=== PATIENT | male | born 1965 | race Caucasian/White ===

== ENCOUNTER 2019-09-22 13:05 | Inpatient (IN) | payer MEDICARE ==
[2019-09-22 13:33] LABS: ABSOLUTE EOSINOPHILS # (AUTO) 0.1 10^3/uL (0.0-0.6); ABSOLUTE LYMPHOCYTES (AUTO) 2.2 10^3/uL (0.5-4.7); ABSOLUTE MONOCYTES (AUTO) 0.7 10^3/uL (0.1-1.4); ABSOLUTE NEUT (AUTO) 4.7 10^3/uL (1.7-8.2); BASOPHILS % (AUTO) 0.6 % (0-2); EOSINOPHILS % (AUTO) 1.3 % (0-6); HEMATOCRIT 47.8 % (37.9-51.0); HEMOGLOBIN 16.6 g/dL (13.5-17.0); LYMPHOCYTES % (AUTO) 28.7 % (13-45); MEAN CORPUSCULAR HGB CONC 34.6 g/dL (32.0-36.0); MEAN CORPUSCULAR VOLUME 89 fl (80-97); MONOCYTES % (AUTO) 8.8 % (3-13); PLATELET COUNT 163 10^3/uL (150-450); RED BLOOD COUNT 5.35 10^6/uL (4.35-5.55); RED CELL DISTRIBUTION WIDTH 12.9 % (11.5-14.0); SEGMENTED NEUTROPHILS % (AUTO) 60.6 % (42-78); TOTAL CELLS COUNTED % (AUTO) 100 %; WHITE BLOOD COUNT 7.8 10^3/uL (4.0-10.5)
[2019-09-22] MEDS ORDERED: ONDANSETRON HCL INJ/PF 4 MG/2 ML SDV IV ONE (13:38)
[2019-09-22] MEDS ORDERED: DILTIAZEM HCL/D5W 125 MG/125 ML RTUINJ IV PRN ×2 (13:38→17:47)
--- NOTE | 2019-09-22 13:45 | ER Document Report ---
ED General - General Chief Complaint: Nausea Stated Complaint: NAUSEA/DIZZINESS Time Seen by Provider: 09/22/19 13:26 - HPI Notes: 54-year-old male transported here via EMS with a chief complaint of high blood sugar and rapid heart rate. This gentleman has a history of insulin-dependent diabetes mellitus for the past 2 years and also has a history of chronic atrial flutter/fibrillation. He is moved here from the [facility] within the last 3 months and has not seen a doctor since then. He says he is not feeling well today in general but says he is compliant with his medications. He denies nausea vomiting but says that he has not been eating or drinking well. Patient is chronically on metoprolol, diltiazem and Eliquis. He reports no allergies. He smokes 1/2 pack of cigarettes per day. He smokes marijuana. He denies abuse of alcohol. Past Medical History - General Information source: Patient, Emergency Med Personnel - Social History Smoking Status: Current Every Day Smoker Cigarette use (# per day): Yes - 1/2 pack/day Chew tobacco use (# tins/day): No Frequency of alcohol use: None Drug Abuse: Marijuana Family History: Reviewed & Not Pertinent Patient has suicidal ideation: No Patient has homicidal ideation: No - Past Medical History Cardiac Medical History: Reports: Hx Atrial Fibrillation Pulmonary Medical History: Reports: None Neurological Medical History: Reports: None Endocrine Medical History: Reports: Hx Diabetes Mellitus Type 1 Musculoskeletal Medical History: Reports Other - Chronic low back pain with previous back surgery Past Surgical History: Reports: Other - Lumbar laminectomy Review of Systems - Review of Systems Notes: Constitutional: Negative for fever. HENT: Negative for sore throat. Eyes: Negative for visual changes. Cardiovascular: Vague tightness in chest this morning mid chest without radiation. Respiratory: Negative for shortness of breath. Gastrointestinal: Nausea present. Negative for abdominal pain, vomiting or diarrhea. Genitourinary: Urinary frequency. Negative for dysuria. Musculoskeletal: Negative for back pain. Skin: Negative for rash. Neurological: Negative for headaches, focal weakness or numbness. 10 point ROS negative except as marked above and in HPI. Physical Exam - Vital signs Vitals: Resp Pulse Ox 19 98 09/22/19 13:23 09/22/19 13:23 - Notes Notes: GENERAL: Somewhat chronically ill male of approximately dehydrated. SKIN: Good turgor no rashes. HEAD: Normocephalic atraumatic. EYES: PERRLA. EOMI. Conjunctivae and sclerae clear. EARS: CANALS AND TMS CLEAR. NOSE: CLEAR. MOUTH: Tacky oral mucosa. Good dentition. No stridor or edema. No drooling. Throat: Clear. NECK: Supple. No masses or thyromegaly. No adenopathy. Carotids 2+ without bruits. No JVD. BACK: Symmetrical without tenderness. CHEST: Respirations unlabored. Breath sounds clear and symmetrical. HEART: Tachycardic irregular rhythm. No murmur gallop or rub. ABDOMEN: Soft nontender without masses, organomegaly or rebound. Bowel sounds normally active. No bruits. GENITALIA: Deferred. EXTREMITIES: No edema. No calf tenderness. Cap refill less than 1.5 seconds. Dorsalis pedis and posterior tibial pulses 3+ and symmetrical. NEUROLOGICAL: GCS 15. Alert and oriented x3. Fluent speech. Cranial nerves II through XII intact. Sensorimotor and cerebellar normal. Normal tone. PSYCHIATRIC: Flat affect and mildly hostile. Course - Re-evaluation Re-evalutation: 09/22/19 17:23 We initially treated this man with aggressive IV normal saline hydration. His rate slowed with this his blood pressure remained stable. His initial venous pH was 7.3 with a bicarb of 19 I thought he was very early diabetic ketoacidosis. His urine ketones were strongly positive. He has no evidence of an active infection. His EKG showed no ST changes to suggest [place]. His troponin was negative. A repeat venous pH x-ray showed the value falling to a level of 7.23. We have initiated an IV insulin infusion. He is admitted by the hospitalist service. - Vital Signs Vital signs: Temp Pulse Resp BP Pulse Ox 18 113/82 99 09/22/19 16:30 09/22/19 16:30 09/22/19 13:30 - Laboratory Result Diagrams: 09/22/19 13:13 09/22/19 13:13 Laboratory results interpreted by me: 09/22/19 09/22/19 09/22/19 13:13 13:23 14:25 VBG pH VBG HCO3 18.2 L Sodium 134.3 L Carbon Dioxide 17 L Glucose 353 H POC Glucose 324 H Creatine Kinase < 20 L Total Protein 6.2 L Urine Glucose (UA) Urine Ketones 09/22/19 09/22/19 09/22/19 16:13 16:20 16:35 VBG pH 7.23 L VBG HCO3 17.0 L Sodium Carbon Dioxide Glucose POC Glucose 272 H Creatine Kinase Total Protein Urine Glucose (UA) >=500 H Urine Ketones 80 H Critical Care Note - Critical Care Note Total time excluding time spent on procedures (mins): 65 Comments: IV insulin infusion Discharge - Discharge Clinical Impression: Chronic atrial flutter Diabetic ketoacidosis Qualifiers: Diabetes mellitus type: type 1 Diabetes mellitus complication detail: without coma Qualified Code(s): E10.10 - Type 1 diabetes mellitus with ketoacidosis without coma Condition: Fair Disposition: ADMITTED INPATIENT Admitting Provider: Karen (Hospitalist) Unit Admitted: [facility]
[2019-09-22 13:58] LABS: ALBUMIN 3.8 g/dL (3.5-5.0); ALKALINE PHOSPHATASE 87 U/L (38-126); ASPARTATE AMINO TRANSFERASE 20 U/L (17-59); BILIRUBIN,DIRECT 0.3 mg/dL (0.0-0.4); BILIRUBIN,TOTAL 0.6 mg/dL (0.2-1.3); BLOOD UREA NITROGEN 13 mg/dL (7-20); CALCIUM 9.2 mg/dL (8.4-10.2); CHLORIDE 98 mmol/L (98-107); GLUCOSE 353 mg/dL (75-110); POTASSIUM 4.9 mmol/L (3.6-5.0); TOTAL PROTEIN 6.2 g/dL (6.3-8.2)
[2019-09-22 14:01] LABS: CREATINE KINASE < 20 U/L (55-170)
[2019-09-22 14:03] LABS: CARBON DIOXIDE 17 mmol/L (22-30)
[2019-09-22 14:04] LABS: ANION GAP 19 (5-19); PROTHROMBIN TIME 14.2 SEC (11.4-15.4)
--- NOTE | 2019-09-22 14:08 | RADIOLOGY REPORT (SQ) ---
EXAM DESCRIPTION: CHEST SINGLE VIEW COMPLETED DATE/TIME: 09/22/2019 1:55 pm REASON FOR STUDY: A. flutter COMPARISON: None. EXAM PARAMETERS: NUMBER OF VIEWS: One view. TECHNIQUE: Single frontal radiographic view of the chest acquired. RADIATION DOSE: NA LIMITATIONS: None. FINDINGS: LUNGS AND PLEURA: No opacities, masses or pneumothorax. No pleural effusion. MEDIASTINUM AND HILAR STRUCTURES: No masses. Contour normal. HEART AND VASCULAR STRUCTURES: Heart normal in size. Normal vasculature. BONES: No acute findings. HARDWARE: None in the chest. OTHER: No other significant finding. IMPRESSION: NO ACUTE RADIOGRAPHIC FINDING IN THE CHEST. TECHNICAL DOCUMENTATION: JOB ID: [id number] [employer]- All Rights Reserved Reading location - IP/workstation name: [email or web address]
[2019-09-22 14:09] LABS: CREATINE KINASE MB 0.25 ng/mL (<4.55)
[2019-09-22 14:10] LABS: TROPONIN I < 0.012 ng/mL
[2019-09-22] MEDS: NORMAL SALINE 1000 ML 1,000 ML IV PRN ×2 (14:34→15:47)
[2019-09-22 14:36] LABS: VENOUS BLOOD BASE EXCESS -7.4 mmol/L; VENOUS BLOOD HCO3 18.2 mmol/L (20-32); VENOUS BLOOD PCO2 37.5 mmHg (35-63); VENOUS BLOOD PH 7.3 (7.30-7.42)
[2019-09-22] MEDS ORDERED: NORMAL SALINE 1000 ML 1,000 ML IV ONE (15:09)
[2019-09-22 16:48] LABS: VENOUS BLOOD BASE EXCESS -10.1 mmol/L; VENOUS BLOOD PCO2 41.8 mmHg (35-63); VENOUS BLOOD PH 7.23 (7.30-7.42)
[2019-09-22 16:51] LABS: APPEARANCE,URINE CLEAR; BILIRUBIN,URINE NEGATIVE (NEGATIVE); COLOR,URINE YELLOW; GLUCOSE, URINE >=500 mg/dL (NEGATIVE); KETONES,URINE 80 mg/dL (NEGATIVE); LEUKOCYTE ESTERASE,URINE NEGATIVE (NEGATIVE); NITRITE,URINE NEGATIVE (NEGATIVE); PROTEIN,URINE NEGATIVE (NEGATIVE); UROBILINOGEN,URINE NEGATIVE mg/dL (<2.0)
[2019-09-22] MEDS ORDERED: DEXTROSE 5%-1/2 NORMAL SALINE 1,000 ML with POTASSIUM CHLORIDE 20 MEQ IV ONE ×2 (17:05)
[2019-09-22] MEDS ORDERED: NORMAL SALINE 100 ML with INSULIN REGULAR, HUMAN 100 UNIT IV PRN ×2 (17:08)
[2019-09-22 17:12] LABS: URINE AMPHETAMINES SCREEN NEGATIVE; URINE BARBITURATES SCREEN NEGATIVE; URINE BENZODIAZEPINES SCREEN NEGATIVE; URINE COCAINE SCREEN NEGATIVE; URINE MARIJUANA (THC) SCREEN UNCONFIRMED POSITIVE; URINE METHADONE SCREEN NEGATIVE; URINE PHENCYCLIDINE SCREEN NEGATIVE
[2019-09-22] MEDS ORDERED: POTASSI CL 20 MEQ/D5-1/2NS 1L 1000 ML IV ONE (17:30)
[2019-09-22] MEDS ORDERED: ONDANSETRON HCL INJ/PF 4 MG/2 ML SDV IV PRN (17:39)
[2019-09-22] MEDS ORDERED: DEXTROSE 40% GEL 15 GM TUBE PO PRN ×2 (17:46)
[2019-09-22] MEDS ORDERED: GLUCAGON,HUMAN RECOMB 1 MG INJ IM PRN (17:46)
[2019-09-22] MEDS ORDERED: DEXTROSE 50%-WATER 25 GM/50 ML DISP.SYRIN IV PRN ×2 (17:46)
[2019-09-22] MEDS ORDERED: INSULIN REG, HUMAN 100 UNIT/ML 3 ML VIAL (PYX) ONE (18:09)
--- NOTE | 2019-09-22 18:15 | PDOC H&P ---
History of Present Illness Admission Date/PCP: 09/22/19 17:39 Patient complains of: Lightheadedness, elevated blood sugar reading History of Present Illness: MATT OAKLEY is a 54 year old male with a history of diabetes mellitus, atrial fibrillation/a flutter on chronic anticoagulation, who presents to the hospital with complaints of lightheadedness especially on standing. Patient also noted that his blood sugar was elevated at home. Patient is currently very grumpy and does not want to divulge much information. Patient is getting angry at me because he is requesting for food and I am telling him that he needs to be n.p.o. until we resolve his DKA. Patient however admits to noncompliance with his insulin. States he is meant to take 30 units of Lantus twice a day but only takes it whenever he gets sick. Last time he took this was 1 week ago. Currently denies chest pain shortness of breath, polyuria, abdominal pain, nausea or vomiting. Past Medical History Cardiac Medical History: Reports: Atrial Fibrillation Pulmonary Medical History: Reports: None Neurological Medical History: Reports: None Endocrine Medical History: Reports: Diabetes Mellitus Type 2 Musculoskeltal Medical History: Reports: Other - Chronic low back pain with previous back surgery Past Surgical History Past Surgical History: Reports: Other - Lumbar laminectomy Social History Smoking Status: Current Every Day Smoker Cigarettes Packs Per Day: 0.5 Electronic Cigarette use?: No Hx Recreational Drug Use: No Hx Prescription Drug Abuse: No - Advance Directive Resuscitation Status: Intubate only. No CPR. Implications confirmed with patient. Family History Family History: Other - Patient is agitated and did not want to divulge family history Parental Family History Reviewed: Yes Children Family History Reviewed: NA Sibling(s) Family History Reviewed.: NA Review of Systems Constitutional: ABSENT: fever(s) Eyes: ABSENT: visual disturbances Respiratory: ABSENT: cough, dyspnea Gastrointestinal: ABSENT: abdominal pain, nausea, vomiting Genitourinary: ABSENT: dysuria Musculoskeletal: ABSENT: back pain Integumentary: ABSENT: diaphoresis Neurological: PRESENT: dizziness Psychiatric: ABSENT: depression Physical Exam Vital Signs: Temp Pulse Resp BP Pulse Ox 18 113/82 99 09/22/19 16:30 09/22/19 16:30 09/22/19 13:30 Intake & Output 09/21/19 09/22/19 09/23/19 06:59 06:59 06:59 Intake Total 3000 Balance 3000 Weight 81.647 kg General appearance: PRESENT: no acute distress, cooperative Head exam: PRESENT: normocephalic Eye exam: ABSENT: scleral icterus Mouth exam: PRESENT: neck supple Neck exam: ABSENT: JVD Respiratory exam: PRESENT: clear to auscultation rosetta, symmetrical, unlabored. ABSENT: tachypnea, wheezes Cardiovascular exam: PRESENT: irregular rhythm, +S1, +S2, tachycardia GI/Abdominal exam: PRESENT: normal bowel sounds, soft. ABSENT: rebound, rigid, tenderness Extremities exam: ABSENT: pedal edema Musculoskeletal exam: PRESENT: normal inspection Neurological exam: PRESENT: alert, awake, oriented to situation Psychiatric exam: PRESENT: agitated. ABSENT: anxious Focused psych exam: ABSENT: pressured speech Results Laboratory Results: 09/22/19 13:13 09/22/19 13:13 09/22/19 09/22/19 09/22/19 13:13 13:13 14:25 WBC 7.8 RBC 5.35 Hgb 16.6 Hct 47.8 MCV 89 MCH 31.0 MCHC 34.6 RDW 12.9 Plt Count 163 Seg Neutrophils % 60.6 VBG pH 7.30 VBG pCO2 37.5 VBG HCO3 18.2 L VBG Base Excess -7.4 Sodium 134.3 L Potassium 4.9 Chloride 98 Carbon Dioxide 17 L Anion Gap 19 BUN 13 Creatinine 0.58 Est GFR ( Amer) > 60 Glucose 353 H Calcium 9.2 Total Bilirubin 0.6 AST 20 Alkaline Phosphatase 87 Total Protein 6.2 L Albumin 3.8 Urine Color Urine Appearance Urine pH Ur Specific [place] Urine Protein Urine Glucose (UA) Urine Ketones Urine Blood Urine Nitrite Ur Leukocyte Esterase Urine WBC (Auto) Urine RBC (Auto) 09/22/19 09/22/19 16:20 16:35 WBC RBC Hgb Hct MCV MCH MCHC RDW Plt Count Seg Neutrophils % VBG pH 7.23 L VBG pCO2 41.8 VBG HCO3 17.0 L VBG Base Excess -10.1 Sodium Potassium Chloride Carbon Dioxide Anion Gap BUN Creatinine Est GFR ( Amer) Glucose Calcium Total Bilirubin AST Alkaline Phosphatase Total Protein Albumin Urine Color YELLOW Urine Appearance CLEAR Urine pH 5.0 Ur Specific [place] 1.030 Urine Protein NEGATIVE Urine Glucose (UA) >=500 H Urine Ketones 80 H Urine Blood NEGATIVE Urine Nitrite NEGATIVE Ur Leukocyte Esterase NEGATIVE Urine WBC (Auto) 0 Urine RBC (Auto) 0 09/22/19 09/22/19 13:13 13:13 Creatine Kinase < 20 L CK-MB (CK-2) 0.25 Troponin I < 0.012 Impressions: Chest X-Ray 09/22/19 13:37 IMPRESSION: NO ACUTE RADIOGRAPHIC FINDING IN THE CHEST. Assessment and Plan - Diagnosis (1) Diabetic ketoacidosis Qualifiers: Diabetes mellitus type: other specified (including SONAM) Diabetes mellitus complication detail: without coma Qualified Code(s): E13.10 - Other specified diabetes mellitus with ketoacidosis without coma Is this a current diagnosis for this admission?: Yes Plan: Patient notably is meant to be taking glipizide and metformin and also states that he was meant to be taking Lantus 30 units twice a day which he has not taken in a week. Clearly he is DKA secondary to noncompliance with insulin. pH of 7.23 with anion gap of 18 and ketonuria of 80. Start on insulin drip and give 8 units regular insulin IV bolus now Monitor BMP every 4-6 hours with repeat venous blood gas and every hour Accu- Cheks DKA protocol KCl supplementation and IV hydration (2) Atrial flutter with rapid ventricular response Is this a current diagnosis for this admission?: Yes Plan: Chronic atrial flutter now with rapid ventricular response secondary to dehydrated state and DKA Check TSH Home regimen is meant to be diltiazem 120 mg every 12 hours and Lopressor 25 mg every 12 hours Maintain on diltiazem drip for now. Monitor on telemetry. Give a dose of diltiazem 120 mg p.o. now and IV hydration. Continue Xarelto and Lopressor (3) GERD (gastroesophageal reflux disease) Qualifiers: Esophagitis presence: without esophagitis Qualified Code(s): K21.9 - Gastro-esophageal reflux disease without esophagitis Is this a current diagnosis for this admission?: Yes Plan: Protonix 40 mg daily (4) Lightheadedness Is this a current diagnosis for this admission?: Yes Plan: Likely secondary to dehydrated state. Continue IV fluids. Check orthostatics tomorrow - Time Time Spent with patient: 35 or more minutes - Inpatient Certification Medical Necessity: Need Close Monitoring Due to Risk of Patient Decompensation, Need For Continuous Telemetry Monitoring, Risk of Complication if Not Cared For in Hospital
[2019-09-22] MEDS ORDERED: POTASSIUM CHLORIDE IV PRN ×2 (18:24)
[2019-09-22] MEDS ORDERED: [UNRECOGNIZED DRUG - OTHER] IV PRN ×2 (18:24)
[2019-09-22] MEDS ORDERED: SODIUM CHLORIDE IV PRN ×2 (18:24)
[2019-09-22] MEDS ORDERED: [UNRECOGNIZED DRUG - OTHER] IV PRN ×2 (18:27)
[2019-09-22] MEDS ORDERED: NS IV PRN ×2 (18:27)
[2019-09-22] MEDS ORDERED: POTASSI CL 20 MEQ/NS 1L 1000 ML IV PRN (18:34)
[2019-09-22] MEDS: NORMAL SALINE 100 ML with INSULIN REGULAR, HUMAN 100 UNIT IV PRN ×4 (21:00→23:45)
[2019-09-22] MEDS: METOPROLOL TARTRATE 25 MG TABLET PO SCH (21:45)
[2019-09-22] MEDS: SIMVASTATIN 10 MG TABLET PO SCH (21:45)
[2019-09-22] MEDS: DILTIAZEM HCL 120 MG CAP.SR.24H PO SCH (21:47)
[2019-09-22 22:20] LABS: VENOUS BLOOD BASE EXCESS -10.7 mmol/L; VENOUS BLOOD HCO3 13.8 mmol/L (20-32); VENOUS BLOOD PCO2 28.1 mmHg (35-63); VENOUS BLOOD PH 7.31 (7.30-7.42)
[2019-09-22 22:26] LABS: ANION GAP 19 (5-19); BLOOD UREA NITROGEN 8 mg/dL (7-20); CALCIUM 8.5 mg/dL (8.4-10.2); CHLORIDE 105 mmol/L (98-107); GLUCOSE 204 mg/dL (75-110); POTASSIUM 4.6 mmol/L (3.6-5.0)
[2019-09-22] MEDS: RIVAROXABAN 10 MG TABLET PO SCH (22:29)
[2019-09-22 22:40] LABS: CARBON DIOXIDE 10 mmol/L (22-30)
[2019-09-22] MEDS: ACETAMINOPHEN 325 MG TABLET PO PRN (23:00)
[2019-09-23] MEDS: POTASSI CL 20 MEQ/D5-1/2NS 1L 1,000 ML IV PRN ×3 (00:58→10:40)
[2019-09-23 02:54] LABS: ANION GAP 10 (5-19); BLOOD UREA NITROGEN 11 mg/dL (7-20); CALCIUM 8.5 mg/dL (8.4-10.2); CARBON DIOXIDE 18 mmol/L (22-30); CHLORIDE 107 mmol/L (98-107); GLUCOSE 329 mg/dL (75-110); POTASSIUM 4.1 mmol/L (3.6-5.0)
[2019-09-23] MEDS: POTASSIUM CHLORIDE 20 MEQ/50 ML RTU IV SCH ×3 (04:00→08:21)
[2019-09-23] MEDS: PANTOPRAZOLE SODIUM 40 MG TABLET.DR PO SCH (05:53)
[2019-09-23] MEDS: DILTIAZEM HCL 120 MG CAP.SR.24H PO SCH ×2 (05:53→17:39)
[2019-09-23 06:16] LABS: VENOUS BLOOD BASE EXCESS -5.7 mmol/L; VENOUS BLOOD HCO3 18.4 mmol/L (20-32); VENOUS BLOOD PCO2 32.4 mmHg (35-63); VENOUS BLOOD PH 7.37 (7.30-7.42)
[2019-09-23 06:25] LABS: ABSOLUTE EOSINOPHILS # (AUTO) 0.3 10^3/uL (0.0-0.6); ABSOLUTE LYMPHOCYTES (AUTO) 3.6 10^3/uL (0.5-4.7); ABSOLUTE MONOCYTES (AUTO) 0.9 10^3/uL (0.1-1.4); ABSOLUTE NEUT (AUTO) 4.6 10^3/uL (1.7-8.2); BASOPHILS % (AUTO) 0.5 % (0-2); EOSINOPHILS % (AUTO) 2.8 % (0-6); HEMATOCRIT 43.5 % (37.9-51.0); HEMOGLOBIN 15.1 g/dL (13.5-17.0); LYMPHOCYTES % (AUTO) 38.5 % (13-45); MEAN CORPUSCULAR HEMOGLOBIN 30.7 pg (27.0-33.4); MEAN CORPUSCULAR HGB CONC 34.8 g/dL (32.0-36.0); MEAN CORPUSCULAR VOLUME 88 fl (80-97); MONOCYTES % (AUTO) 9.2 % (3-13); PLATELET COUNT 178 10^3/uL (150-450); RED BLOOD COUNT 4.92 10^6/uL (4.35-5.55); RED CELL DISTRIBUTION WIDTH 12.5 % (11.5-14.0); TOTAL CELLS COUNTED % (AUTO) 100 %; WHITE BLOOD COUNT 9.3 10^3/uL (4.0-10.5)
[2019-09-23 06:36] LABS: ANION GAP 10 (5-19); BLOOD UREA NITROGEN 11 mg/dL (7-20); CARBON DIOXIDE 17 mmol/L (22-30); CHLORIDE 108 mmol/L (98-107); GLUCOSE 156 mg/dL (75-110); PHOSPHORUS 3.4 mg/dL (2.5-4.5); POTASSIUM 4.8 mmol/L (3.6-5.0)
[2019-09-23] MEDS: METOPROLOL TARTRATE 25 MG TABLET PO SCH ×2 (09:14→22:56)
[2019-09-23] MEDS ORDERED: HUM INSULIN NPH/REG INSULIN HM 100 UNIT/1 ML 3 ML SUBCUT ONE ×2 (09:15→16:30)
[2019-09-23] MEDS ORDERED: ENOXAPARIN SODIUM INJ 40 MG/0.4 ML DISP.SYRIN SUBCUT SCH (10:00)
[2019-09-23 11:06] LABS: ANION GAP 11 (5-19); BLOOD UREA NITROGEN 10 mg/dL (7-20); CALCIUM 9.2 mg/dL (8.4-10.2); CARBON DIOXIDE 19 mmol/L (22-30); CHLORIDE 108 mmol/L (98-107); GLUCOSE 107 mg/dL (75-110); POTASSIUM 4.2 mmol/L (3.6-5.0)
--- NOTE | 2019-09-23 11:19 | PDOC PROGRESS REPORT ---
Subjective Progress Note for:: 09/23/19 Subjective:: Patient currently denies any lightheadedness or dizziness. Patient denies any abdominal pains. Patient states that he feels well and just wants to eat. Patient is still quite grumpy and not wanting to answer most of my questions. Reason For Visit: DKA,A FLUTTER RVR Physical Exam Vital Signs: Temp Pulse Resp BP Pulse Ox 99.0 F 100 16 117/84 99 09/23/19 08:00 09/23/19 08:00 09/23/19 08:00 09/23/19 08:00 09/23/19 08:00 Intake & Output 09/22/19 09/23/19 09/24/19 06:59 06:59 06:59 Intake Total 4097 2145 Balance 4097 2145 Weight 74.5 kg General appearance: PRESENT: no acute distress, cooperative Neck exam: ABSENT: JVD Respiratory exam: PRESENT: clear to auscultation rosetta, unlabored. ABSENT: tachypnea, wheezes Cardiovascular exam: PRESENT: RRR, +S1, +S2. ABSENT: tachycardia GI/Abdominal exam: PRESENT: normal bowel sounds, soft. ABSENT: rebound, rigid, tenderness Neurological exam: PRESENT: alert, awake, oriented to person, oriented to place, oriented to time Results Laboratory Results: 09/23/19 05:58 09/23/19 10:17 09/22/19 09/22/19 09/22/19 13:13 13:13 14:25 WBC 7.8 RBC 5.35 Hgb 16.6 Hct 47.8 MCV 89 MCH 31.0 MCHC 34.6 RDW 12.9 Plt Count 163 Seg Neutrophils % 60.6 VBG pH 7.30 VBG pCO2 37.5 VBG HCO3 18.2 L VBG Base Excess -7.4 Sodium 134.3 L Potassium 4.9 Chloride 98 Carbon Dioxide 17 L Anion Gap 19 BUN 13 Creatinine 0.58 Est GFR ( Amer) > 60 Glucose 353 H Calcium 9.2 Phosphorus Magnesium Total Bilirubin 0.6 AST 20 Alkaline Phosphatase 87 Total Protein 6.2 L Albumin 3.8 TSH Urine Color Urine Appearance Urine pH Ur Specific [place] Urine Protein Urine Glucose (UA) Urine Ketones Urine Blood Urine Nitrite Ur Leukocyte Esterase Urine WBC (Auto) Urine RBC (Auto) 09/22/19 09/22/19 09/22/19 16:20 16:35 21:57 WBC RBC Hgb Hct MCV MCH MCHC RDW Plt Count Seg Neutrophils % VBG pH 7.23 L VBG pCO2 41.8 VBG HCO3 17.0 L VBG Base Excess -10.1 Sodium 133.7 L Potassium 4.6 Chloride 105 Carbon Dioxide 10 L* Anion Gap 19 BUN 8 Creatinine 0.37 L Est GFR ( Amer) > 60 Glucose 204 H Calcium 8.5 Phosphorus Magnesium Total Bilirubin AST Alkaline Phosphatase Total Protein Albumin TSH Urine Color YELLOW Urine Appearance CLEAR Urine pH 5.0 Ur Specific [place] 1.030 Urine Protein NEGATIVE Urine Glucose (UA) >=500 H Urine Ketones 80 H Urine Blood NEGATIVE Urine Nitrite NEGATIVE Ur Leukocyte Esterase NEGATIVE Urine WBC (Auto) 0 Urine RBC (Auto) 0 09/22/19 09/23/19 09/23/19 21:57 01:59 05:58 WBC 9.3 RBC 4.92 Hgb 15.1 Hct 43.5 MCV 88 MCH 30.7 MCHC 34.8 RDW 12.5 Plt Count 178 Seg Neutrophils % 49.0 VBG pH 7.31 VBG pCO2 28.1 L VBG HCO3 13.8 L VBG Base Excess -10.7 Sodium 134.5 L Potassium 4.1 Chloride 107 Carbon Dioxide 18 L Anion Gap 10 BUN 11 Creatinine 0.40 L Est GFR ( Amer) > 60 Glucose 329 H Calcium 8.5 Phosphorus Magnesium Total Bilirubin AST Alkaline Phosphatase Total Protein Albumin TSH Urine Color Urine Appearance Urine pH Ur Specific [place] Urine Protein Urine Glucose (UA) Urine Ketones Urine Blood Urine Nitrite Ur Leukocyte Esterase Urine WBC (Auto) Urine RBC (Auto) 09/23/19 09/23/19 09/23/19 05:58 05:58 05:58 WBC RBC Hgb Hct MCV MCH MCHC RDW Plt Count Seg Neutrophils % VBG pH 7.37 VBG pCO2 32.4 L VBG HCO3 18.4 L VBG Base Excess -5.7 Sodium 134.9 L Potassium 4.8 Chloride 108 H Carbon Dioxide 17 L Anion Gap 10 BUN 11 Creatinine 0.36 L Est GFR ( Amer) > 60 Glucose 156 H Calcium 9.0 Phosphorus 3.4 Magnesium 1.9 Total Bilirubin AST Alkaline Phosphatase Total Protein Albumin TSH 1.12 Urine Color Urine Appearance Urine pH Ur Specific [place] Urine Protein Urine Glucose (UA) Urine Ketones Urine Blood Urine Nitrite Ur Leukocyte Esterase Urine WBC (Auto) Urine RBC (Auto) 09/23/19 10:17 WBC RBC Hgb Hct MCV MCH MCHC RDW Plt Count Seg Neutrophils % VBG pH VBG pCO2 VBG HCO3 VBG Base Excess Sodium 138.2 Potassium 4.2 Chloride 108 H Carbon Dioxide 19 L Anion Gap 11 BUN 10 Creatinine 0.38 L Est GFR ( Amer) > 60 Glucose 107 Calcium 9.2 Phosphorus Magnesium Total Bilirubin AST Alkaline Phosphatase Total Protein Albumin TSH Urine Color Urine Appearance Urine pH Ur Specific [place] Urine Protein Urine Glucose (UA) Urine Ketones Urine Blood Urine Nitrite Ur Leukocyte Esterase Urine WBC (Auto) Urine RBC (Auto) 09/22/19 09/22/19 13:13 13:13 Creatine Kinase < 20 L CK-MB (CK-2) 0.25 Troponin I < 0.012 Impressions: Chest X-Ray 09/22/19 13:37 IMPRESSION: NO ACUTE RADIOGRAPHIC FINDING IN THE CHEST. Assessment and Plan - Diagnosis (1) Diabetic ketoacidosis Qualifiers: Diabetes mellitus type: other specified (including SONAM) Diabetes mellitus complication detail: without coma Qualified Code(s): E13.10 - Other specified diabetes mellitus with ketoacidosis without coma Is this a current diagnosis for this admission?: Yes Plan: Patient notably is meant to be taking glipizide and metformin and also states that he was meant to be taking Lantus 30 units twice a day which he has not taken in a week. DKA was secondary to noncompliance with insulin but has currently resolved. A1c >14 Discontinue insulin drip and IV fluids I had conversation with patient about compliance with insulin. After discussing with him regarding what regimen he is likely to be compliant with [twice a day 70/30 insulin versus more strict regimen with lispro TIDAC and Lantus nightly] patient is opted to be placed on the 7030 twice a day regimen and states that he is certainly not going to comply with taking insulin 4 times a day. Patient has been transitioned to insulin 70/30 18 units with breakfast and 12 units with dinner. (2) Atrial flutter with rapid ventricular response Is this a current diagnosis for this admission?: Yes Plan: Chronic atrial flutter now with rapid ventricular response secondary to dehydrated state and DKA TSH within normal limits Resume diltiazem 120 mg every 12 hours and Lopressor 25 mg every 12 hours--> uptitrate regimen if persist in RVR Plan to DC diltiazem drip (3) GERD (gastroesophageal reflux disease) Qualifiers: Esophagitis presence: without esophagitis Qualified Code(s): K21.9 - Gastro-esophageal reflux disease without esophagitis Is this a current diagnosis for this admission?: Yes Plan: Protonix 40 mg daily (4) Lightheadedness Is this a current diagnosis for this admission?: Yes Plan: Likely secondary to dehydrated state. Resolved. Check orthostatics. - Time Time Spent with patient: 15-24 minutes
--- NOTE | 2019-09-23 13:05 | EKG REPORT ---
SEVERITY:- ABNORMAL ECG - ATRIAL FIBRILLATION REPOL ABNRM SUGGESTS ISCHEMIA, DIFFUSE LEADS : Confirmed by: Tamy Tello 23-Sep-2019 13:04:32
--- NOTE | 2019-09-23 13:05 | EKG REPORT ---
SEVERITY:- ABNORMAL ECG - ATRIAL FIBRILLATION, V-RATE 83-109 CONSIDER ANTEROSEPTAL INFARCT BORDERLINE T ABNORMALITIES, LATERAL LEADS : Confirmed by: Tamy Tello 23-Sep-2019 13:04:28
[2019-09-23] MEDS: INSULIN LISPRO 100 UNIT/ML 3 ML VIAL SUBCUT SCH ×3 (13:15→22:56)
[2019-09-23] MEDS ORDERED: HUM INSULIN NPH/REG INSULIN HM 100 UNIT/1 ML 3 ML SUBCUT SCH (16:00)
[2019-09-23] MEDS ORDERED: NORMAL SALINE 1000 ML 1,000 ML IV ONE (16:30)
[2019-09-23] MEDS: RIVAROXABAN 10 MG TABLET PO SCH (16:39)
[2019-09-23] MEDS ORDERED: INSULIN REG, HUMAN 100 UNIT/ML 3 ML VIAL (PYX) IV ONE (18:30)
[2019-09-23] MEDS ORDERED: METOPROLOL TARTRATE PF/INJ 5 MG/5 ML SDV IV PRN (21:58)
[2019-09-23] MEDS: ACETAMINOPHEN 325 MG TABLET PO PRN (22:55)
[2019-09-23] MEDS: SIMVASTATIN 10 MG TABLET PO SCH (22:56)
[2019-09-24 06:40] LABS: ANION GAP 14 (5-19); BLOOD UREA NITROGEN 12 mg/dL (7-20); CARBON DIOXIDE 21 mmol/L (22-30); CHLORIDE 100 mmol/L (98-107); GLUCOSE 352 mg/dL (75-110); POTASSIUM 4.2 mmol/L (3.6-5.0)
[2019-09-24 06:49] LABS: ABSOLUTE EOSINOPHILS # (AUTO) 0.2 10^3/uL (0.0-0.6); ABSOLUTE LYMPHOCYTES (AUTO) 3.2 10^3/uL (0.5-4.7); ABSOLUTE MONOCYTES (AUTO) 0.8 10^3/uL (0.1-1.4); ABSOLUTE NEUT (AUTO) 4.3 10^3/uL (1.7-8.2); BASOPHILS % (AUTO) 0.3 % (0-2); EOSINOPHILS % (AUTO) 1.9 % (0-6); HEMATOCRIT 42.3 % (37.9-51.0); HEMOGLOBIN 14.5 g/dL (13.5-17.0); LYMPHOCYTES % (AUTO) 37.7 % (13-45); MEAN CORPUSCULAR HEMOGLOBIN 30.7 pg (27.0-33.4); MEAN CORPUSCULAR HGB CONC 34.3 g/dL (32.0-36.0); MEAN CORPUSCULAR VOLUME 89 fl (80-97); MONOCYTES % (AUTO) 9.6 % (3-13); PLATELET COUNT 166 10^3/uL (150-450); RED BLOOD COUNT 4.72 10^6/uL (4.35-5.55); RED CELL DISTRIBUTION WIDTH 12.9 % (11.5-14.0); SEGMENTED NEUTROPHILS % (AUTO) 50.5 % (42-78); TOTAL CELLS COUNTED % (AUTO) 100 %; WHITE BLOOD COUNT 8.5 10^3/uL (4.0-10.5)
[2019-09-24] MEDS: PANTOPRAZOLE SODIUM 40 MG TABLET.DR PO SCH (06:58)
[2019-09-24] MEDS: DILTIAZEM HCL 120 MG CAP.SR.24H PO SCH (06:58)
[2019-09-24] MEDS ORDERED: HUM INSULIN NPH/REG INSULIN HM 100 UNIT/1 ML 3 ML SUBCUT SCH ×4 (08:00→16:00)
[2019-09-24] MEDS ORDERED: DILTIAZEM HCL 60 MG TABLET PO ONE (08:30)
[2019-09-24] MEDS: INSULIN LISPRO 100 UNIT/ML 3 ML VIAL SUBCUT SCH ×4 (08:37→21:47)
[2019-09-24] MEDS: METFORMIN HCL 500 MG TABLET PO SCH ×2 (08:37→17:45)
[2019-09-24] MEDS ORDERED: NORMAL SALINE 1000 ML 2,000 ML IV ONE (09:00)
[2019-09-24] MEDS: METOPROLOL TARTRATE 25 MG TABLET PO SCH ×2 (10:15→21:30)
--- NOTE | 2019-09-24 14:55 | PDOC PROGRESS REPORT ---
Subjective Progress Note for:: 09/24/19 Subjective:: Blood sugar was significantly uncontrolled this morning up to 400s. Patient denied eating any late night snacks or any other meals besides where he was given by the cafeteria. Denies any abdominal pain at the moment. Patient requesting to go home but I have explained to patient that he would need to stay for improvement of blood sugars. Reason For Visit: DKA,A FLUTTER RVR Physical Exam Vital Signs: Temp Pulse Resp BP Pulse Ox 97.6 F 70 18 112/72 97 09/24/19 11:48 09/24/19 11:48 09/24/19 11:48 09/24/19 11:48 09/24/19 11:48 Intake & Output 09/23/19 09/24/19 09/25/19 06:59 06:59 06:59 Intake Total 4097 5405 1999 Output Total 2050 Balance 4097 3355 1999 Weight 74.5 kg General appearance: PRESENT: no acute distress, cooperative Neck exam: ABSENT: JVD Respiratory exam: PRESENT: clear to auscultation rosetta, unlabored. ABSENT: tachypnea, wheezes Cardiovascular exam: PRESENT: RRR, +S1, +S2. ABSENT: tachycardia GI/Abdominal exam: PRESENT: normal bowel sounds, soft. ABSENT: rebound, rigid, tenderness Neurological exam: PRESENT: alert, awake, oriented to person, oriented to place, oriented to time Results Laboratory Results: 09/24/19 05:50 09/24/19 05:50 09/24/19 09/24/19 05:50 05:50 WBC 8.5 RBC 4.72 Hgb 14.5 Hct 42.3 MCV 89 MCH 30.7 MCHC 34.3 RDW 12.9 Plt Count 166 Seg Neutrophils % 50.5 Sodium 134.8 L Potassium 4.2 Chloride 100 Carbon Dioxide 21 L Anion Gap 14 BUN 12 Creatinine 0.42 L Est GFR ( Amer) > 60 Glucose 352 H Calcium 9.0 09/22/19 09/22/19 13:13 13:13 Creatine Kinase < 20 L CK-MB (CK-2) 0.25 Troponin I < 0.012 Impressions: Chest X-Ray 09/22/19 13:37 IMPRESSION: NO ACUTE RADIOGRAPHIC FINDING IN THE CHEST. Assessment and Plan - Diagnosis (1) Diabetes mellitus Qualifiers: Diabetes mellitus type: type 2 Diabetes mellitus medical terminologist insulin use: with fdc use Diabetes mellitus complication status: with hyperglycemia Qualified Code(s): E11.65 - Type 2 diabetes mellitus with hyperglycemia; Z79.4 - meterman (current) use of insulin Is this a current diagnosis for this admission?: Yes Plan: Still uncontrolled and hypoglycemic in the 400s this morning. Insulin 70/30 regimen increased to 30/30 units. Continue metformin. Glipizide restarted. Given normal saline bolus. Continue sliding scale coverage and Accu-Cheks AC and at bedtime Hemoglobin A1c >14 (2) Diabetic ketoacidosis Qualifiers: Diabetes mellitus type: other specified (including SONAM) Diabetes mellitus complication detail: without coma Qualified Code(s): E13.10 - Other specified diabetes mellitus with ketoacidosis without coma Is this a current diagnosis for this admission?: Yes Plan: DKA resolved (3) Atrial flutter with rapid ventricular response Is this a current diagnosis for this admission?: Yes Plan: Chronic atrial flutter now and went into RVR again this morning. TSH within normal limits Diltiazem dose increased to 240 mg daily CD. Continue Lopressor. Continue to monitor on telemetry. Continue anticoagulation. (4) GERD (gastroesophageal reflux disease) Qualifiers: Esophagitis presence: without esophagitis Qualified Code(s): K21.9 - Gastro-esophageal reflux disease without esophagitis Is this a current diagnosis for this admission?: Yes Plan: Protonix 40 mg daily (5) Lightheadedness Is this a current diagnosis for this admission?: Yes Plan: Resolved - Time Time Spent with patient: Less than 15 minutes
[2019-09-24] MEDS ORDERED: GLIPIZIDE 5 MG TABLET PO ONE (16:00)
[2019-09-24] MEDS: RIVAROXABAN 10 MG TABLET PO SCH (17:45)
[2019-09-24] MEDS ORDERED: DILTIAZEM HCL 120 MG CAP.SR.24H PO SCH (18:00)
[2019-09-24] MEDS ORDERED: DILTIAZEM HCL 240 MG CAPSULE.CR PO SCH (18:00)
[2019-09-24 21:04] VITALS: BP 123/68
[2019-09-24] MEDS: SIMVASTATIN 10 MG TABLET PO SCH (21:33)
[2019-09-24] MEDS: ACETAMINOPHEN 325 MG TABLET PO PRN (21:33)
--- NOTE | 2019-09-25 07:29 | Left Against Medical Advice ---
Against Medical Advice Admission Date/Time: 09/22/19 17:39 Primary Care Provider: Date of Patient Emigration: 09/25/19 - Diagnosis: (1) Diabetes mellitus Is this a current diagnosis for this admission?: Yes (2) Diabetic ketoacidosis Is this a current diagnosis for this admission?: Yes (3) Atrial flutter with rapid ventricular response Is this a current diagnosis for this admission?: Yes (4) GERD (gastroesophageal reflux disease) Is this a current diagnosis for this admission?: Yes (5) Lightheadedness Is this a current diagnosis for this admission?: Yes - Summary: Summary: Please see Admission and Progress Notes as well. MATT OAKLEY is a 54 M, who LEFT AGAINST MEDICAL ADVICE. The Patient was admitted on 09/22/19 17:39. Notified by welt trimming machine operator this morning that patient left AMA over the night.
[2019-09-25] MEDS ORDERED: GLIPIZIDE XL 2.5 MG TAB.ER.24 PO SCH (08:00)
[2019-09-25] MEDS ORDERED: HUM INSULIN NPH/REG INSULIN HM 100 UNIT/1 ML 3 ML SUBCUT SCH (08:00)
== END 2019-09-24 22:53 | disposition left against medical advice (07) | DRG 638 ==
LOC: ER 13:05 → EH 17:39 → 3W 20:04
PROVIDERS: ADMIT Internal Medicine; ATTEND Internal Medicine
DX: E10.10 Type 1 diabetes mellitus with ketoacidosis without coma (principal); I48.92 Unspecified atrial flutter; E86.0 Dehydration; K21.9 Gastro-esophageal reflux disease without esophagitis; F17.210 Nicotine dependence, cigarettes, uncomplicated; F12.90 Cannabis use, unspecified, uncomplicated; Z79.4 Long term (current) use of insulin; Z79.01 Long term (current) use of anticoagulants; Z91.14 Patient's other noncompliance with medication regimen
CPT/HCPCS: 36415; 71045; 80048; 80053; 80307; 81001; 82550; 82553; 82803; 82962; 83036; 83735; 84100; 84443; 84484; 85025; 85610; 85730; 93005; 93010; 96365; 96366; 96375; 99291; J1815; J2405; J3480; J3490; J7030; J7050